=== PATIENT | female | born 1965 | race Caucasian/White ===

== ENCOUNTER 2016-06-29 07:28 | Inpatient (IN) | payer OTHER ==
[~2016-06-29] VITALS: Ht 170.2 cm; Wt 95.7 kg
[~2016-06-29 07:28] MED LIST: CENTRUM SILVER1 EAC3 PO; Ecotrin PO; HYDROCODON-ACE1 EAC7 PO; METHOTREXATE PO; METHOTREXATE2.5 MG PO; METOPROLOL TART25 MG PO; MULTIVITAMIN1 EAC2 PO; PRAVACHOL10 MG PO; PROAIR HFA8.5 GM IH; VICODIN
[2016-06-29 10:10] VITALS: BP 120/76
[2016-06-29 18:43] VITALS: BP 157/83
[2016-06-29 20:49] LABS: ANION GAP 10 MEQ/L (2-14); CHLORIDE 103 MEQ/L (99-109); GFR ESTIMATE (CALCULATED) > 59 mL/min/; GLUCOSE 160 mg/dL (70-99); POTASSIUM 4.1 MEQ/L (3.7-5.4); SAMPLE HEMOLYSIS CHECK 0; SAMPLE ICTERIC CHECK 0; SAMPLE LIPEMIA CHECK 0; SODIUM 139 MEQ/L (136-147); UREA NITROGEN (BUN) 13 mg/dL (9-23)
[2016-06-29 20:57] LABS: HEMATOCRIT 39.8 % (36.0-46.0); MCH 31.8 PG (29.0-34.0); MCHC 33.7 G/DL (30.0-36.0); MCV 94.3 FL (83-99); MEAN PLAT.VOLUME 10.9 uM^3 (9.5-12.4); PLATELET COUNT 227 K/uL (156-360); RBC DIS.WIDTH-CV 13.8 % (11.8-14.6); RBC DIS.WIDTH-SD 47.8 % (39-53); RED BLOOD COUNT 4.22 M/uL (3.80-5.20); WHITE BLOOD COUNT 13.9 K/uL (4.1-10.2)
[2016-06-29 23:40] VITALS: BP 168/79
[2016-06-30 03:15] VITALS: BP 152/73
[2016-06-30 07:12] VITALS: BP 130/60
[2016-06-30 07:50] LABS: HEMATOCRIT 39.6 % (36.0-46.0); MCH 31.6 PG (29.0-34.0); MCHC 33.3 G/DL (30.0-36.0); MCV 94.7 FL (83-99); MEAN PLAT.VOLUME 10.7 uM^3 (9.5-12.4); PLATELET COUNT 223 K/uL (156-360); RBC DIS.WIDTH-SD 47.8 % (39-53); RED BLOOD COUNT 4.18 M/uL (3.80-5.20); WHITE BLOOD COUNT 14.4 K/uL (4.1-10.2)
[2016-06-30 08:17] LABS: ANION GAP 8 MEQ/L (2-14); CHLORIDE 104 MEQ/L (99-109); GFR ESTIMATE (CALCULATED) > 59 mL/min/; POTASSIUM 4.3 MEQ/L (3.7-5.4); SAMPLE HEMOLYSIS CHECK 0; SAMPLE ICTERIC CHECK 0; SAMPLE LIPEMIA CHECK 0; SODIUM 142 MEQ/L (136-147); UREA NITROGEN (BUN) 11 mg/dL (9-23)
[2016-06-30 08:23] LABS: GLUCOSE 92 mg/dL (70-99)
[2016-06-30] MEDS ORDERED: PERCOCET 5/31 TABLET PO (09:05)
== END 2016-06-30 10:10 | disposition home or self-care (01) | DRG 741 ==
LOC: 2SOUTH 07:28 → 2EAST 18:10
PROVIDERS: Obstetrics & Gynecology Gynecologic Oncology
DX: D06.0 Carcinoma in situ of endocervix (principal); L40.50 Arthropathic psoriasis, unspecified; M06.9 Rheumatoid arthritis, unspecified; F17.210 Nicotine dependence, cigarettes, uncomplicated; M81.0 Age-related osteoporosis without current pathological fracture; I10 Essential (primary) hypertension; E78.2 Mixed hyperlipidemia; E66.9 Obesity, unspecified; B97.7 Papillomavirus as the cause of diseases classified elsewhere; Z68.32 Body mass index [BMI] 32.0-32.9, adult; Z90.5 Acquired absence of kidney; Z85.528 Personal history of other malignant neoplasm of kidney; Z88.0 Allergy status to penicillin; Z80.0 Family history of malignant neoplasm of digestive organs; Z82.61 Family history of arthritis; Z80.41 Family history of malignant neoplasm of ovary; Z82.49 Family history of ischemic heart disease and other diseases of the circulatory system
CPT/HCPCS: 36415; 80048; 85027; 86850; 86900; 86901; 86920; 88305; 88307; 94799; C1758; J0330; J1100; J1170; J1580; J1940; J2250; J2270; J2405; J2710; J3010; J7050; S0030